=== PATIENT | female | born 1970 | race Caucasian/White ===

== ENCOUNTER 2023-02-19 14:18 | Emergency (ER) | payer SELFPAY ==
[~2023-02-19] VITALS: Ht 167.6 cm; Wt 72.6 kg
[2023-02-19 14:52] LABS: Source, Urine Clean Catch
[2023-02-19 15:22] LABS: Appearance, Urine Clear (Clear); Bilirubin, Urine Neg (Neg); Blood, Urine Neg (Neg); Color, Urine Yellow (P-Yellow); Glucose Qualitative, Urine Neg (Neg); Ketones, Urine Neg (Neg); Leukocyte Esterase, Urine Neg (Neg); Nitrite, Urine Neg (Neg); Protein, Urine Neg (Neg); Urobilinogen, Urine NORM (Normal)
[2023-02-19 16:29] VITALS: BP 124/84
[2023-02-19 18:26] LABS: Candida species (DNA Probe) Negative (NEGATIVE); G. vaginalis (DNA Probe) Negative (NEGATIVE); T. vaginalis (DNA Probe) Negative (NEGATIVE)
== END 2023-02-19 17:02 | disposition home or self-care (01) ==
LOC: ER 14:18
PROVIDERS: Student in an Organized Health Care Education/Training Program
DX: R10.2 Pelvic and perineal pain (principal)
CPT/HCPCS: 76830; 76856; 81003; 87480; 87510; 87660; 99283-25